=== PATIENT | male | born 1965 | race Caucasian/White ===

== ENCOUNTER 2019-09-26 06:59 | Emergency (ER) | payer OTHER ==
[~2019-09-26] VITALS: Ht 167.6 cm; Wt 90.0 kg
[2019-09-26] MEDS ORDERED: IV NORMAL SALINE 1000ML BAG 1,000 ML IV ONE (07:30)
[2019-09-26 08:08] LABS: BASO % 1 % (0-3); EOS # 0.1 x10^3/uL (0.0-0.7); EOS % 2 % (0-3); HEMATOCRIT 49.5 % (39.0-53.0); HEMOGLOBIN 17.6 g/dL (13.0-17.5); LYMPH # 2.2 x10^3/uL (1.0-4.8); LYMPH % 27 % (24-48); MEAN CORPUSCULAR HEMOGLOBIN 32 pg (25-35); MEAN CORPUSCULAR HGB CONC 36 g/dL (31-37); MEAN CORPUSCULAR VOLUME 89 fL (79-100); MONO # 0.6 x10^3/uL (0.0-1.1); MONO % 8 % (0-9); NEUT # 5.1 x10^3/uL (1.8-7.7); NEUT % 63 % (31-73); PLATELET COUNT 213 x10^3/uL (140-400); RED BLOOD COUNT 5.54 x10^6/uL (4.30-5.70); RED CELL DISTRIBUTION WIDTH 14.5 % (11.5-14.5); WHITE BLOOD COUNT 8.1 x10^3/uL (4.0-11.0)
[2019-09-26 08:19] LABS: CALCIUM 8.7 mg/dL (8.5-10.1); CREATININE 0.9 mg/dL (0.7-1.3); GFR 87.9; POTASSIUM 4.2 mmol/L (3.5-5.1)
[2019-09-26 08:25] LABS: ALBUMIN 3.8 g/dL (3.4-5.0); ALBUMIN/GLOBULIN RATIO 1.2 (1.0-1.7); TOTAL BILIRUBIN 0.8 mg/dL (0.2-1.0)
--- NOTE | 2019-09-26 08:42 | PHYS DOC ---
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 He has been feeling dizzy and he has had a lack of appetite. He states he is not had much to eat or drink over the last couple days. He denies any fever chills or sweats. He denies any lower extremity swelling or pain. He denies palpitations or chest discomfort. He has not passed out he denies a headache or any lateralizing neurologic weakness.] Review of Systems: Review of Systems: Constitutional: Denies fever or chills. [] Eyes: Denies change in visual acuity. [] HENT: Denies nasal congestion or sore throat. [] Respiratory: Denies cough or shortness of breath. [] Cardiovascular: Denies chest pain or edema. [] GI: Denies abdominal pain, nausea, vomiting, bloody stools or diarrhea. [] : Denies dysuria. [] Musculoskeletal: Denies back pain or joint pain. [] Integument: Denies rash. [] Neurologic: Reports dizziness [] Endocrine: Denies polyuria or polydipsia. [] Lymphatic: Denies swollen glands. [] Psychiatric: Reports anxiety [] Heart Score: Risk Factors: Risk Factors: DM, Current or recent (<one month) smoker, HTN, HLP, family history of CAD, obesity. Risk Scores: Score 0 - 3: 2.5% MACE over next 6 weeks - Discharge Home Score 4 - 6: 20.3% MACE over next 6 weeks - Admit for Clinical Observation Score 7 - 10: 72.7% MACE over next 6 weeks - Early Invasive Strategies Current Medications: Current Medications Medications (Trade) Dose Ordered Sig/Ayan Start Time Stop Time Status Last Admin Dose Admin Sodium Chloride 1,000 ml @ 1,000 mls/hr 1X ONCE 09/26/19 07:30 09/26/19 08:29 DC 09/26/19 08:00 1,000 MLS/HR Allergies: Allergies: Allergies Coded Allergies Type Severity Reaction Last Updated Verified No Known Drug Allergies 09/26/19 No Physical Exam: PE: Constitutional: Well developed, well nourished, no acute distress, non-toxic appearance. [] HENT: Normocephalic, atraumatic, bilateral external ears normal, oropharynx moist, no oral exudates, nose normal. [] Eyes: PERRLA, EOMI, conjunctiva normal, no discharge. [] Neck: Normal range of motion, no tenderness, supple, no stridor. [] Cardiovascular:Heart rate regular rhythm, no murmur [] Lungs & Thorax: Bilateral breath sounds clear to auscultation [] Abdomen: Bowel sounds normal, soft, no tenderness, no masses, no pulsatile masses. [] Skin: Warm, dry, no erythema, no rash. [] Back: No tenderness, no CVA tenderness. [] Extremities: No tenderness, no cyanosis, no clubbing, ROM intact, no edema. [] Neurologic: Alert and oriented X 3, normal motor function, normal sensory function, no focal deficits noted. [] Psychologic: Affect normal, judgement normal, mood normal. [] Current Patient Data: Labs: Laboratory Tests Test 09/26/19 07:55 White Blood Count 8.1 x10^3/uL (4.0-11.0) Red Blood Count 5.54 x10^6/uL (4.30-5.70) Hemoglobin 17.6 g/dL (13.0-17.5) H Hematocrit 49.5 % (39.0-53.0) Mean Corpuscular Volume 89 fL (79-100) Mean Corpuscular Hemoglobin 32 pg (25-35) Mean Corpuscular Hemoglobin Concent 36 g/dL (31-37) Red Cell Distribution Width 14.5 % (11.5-14.5) Platelet Count 213 x10^3/uL (140-400) Neutrophils (%) (Auto) 63 % (31-73) Lymphocytes (%) (Auto) 27 % (24-48) Monocytes (%) (Auto) 8 % (0-9) Eosinophils (%) (Auto) 2 % (0-3) Basophils (%) (Auto) 1 % (0-3) Neutrophils # (Auto) 5.1 x10^3/uL (1.8-7.7) Lymphocytes # (Auto) 2.2 x10^3/uL (1.0-4.8) Monocytes # (Auto) 0.6 x10^3/uL (0.0-1.1) Eosinophils # (Auto) 0.1 x10^3/uL (0.0-0.7) Basophils # (Auto) 0.0 x10^3/uL (0.0-0.2) D-Dimer (Nancy) < 0.27 ug/mlFEU Sodium Level 123 mmol/L (136-145) L Potassium Level 4.2 mmol/L (3.5-5.1) Chloride Level 89 mmol/L (98-107) L Carbon Dioxide Level 26 mmol/L (21-32) Anion Gap 8 (6-14) Blood Urea Nitrogen 21 mg/dL (8-26) Creatinine 0.9 mg/dL (0.7-1.3) Estimated GFR (Cockcroft-Gault) 87.9 BUN/Creatinine Ratio 23 (6-20) H Glucose Level 127 mg/dL (70-99) H Calcium Level 8.7 mg/dL (8.5-10.1) Total Bilirubin 0.8 mg/dL (0.2-1.0) Aspartate Amino Transferase (AST) 49 U/L (15-37) H Alanine Aminotransferase (ALT) 48 U/L (16-63) Alkaline Phosphatase 119 U/L (46-116) H Troponin I Quantitative < 0.017 ng/mL (0.000-0.055) Total Protein 7.0 g/dL (6.4-8.2) Albumin 3.8 g/dL (3.4-5.0) Albumin/Globulin Ratio 1.2 (1.0-1.7) Thyroid Stimulating Hormone (TSH) 1.540 uIU/mL (0.358-3.74) Laboratory Tests 09/26/19 07:55 Laboratory Tests 09/26/19 07:55 Vital Signs: Vital Signs Date Time Temp Pulse Resp B/P (MAP) Pulse Ox O2 Delivery O2 Flow Rate FiO2 09/26/19 07:10 98.0 82 16 146/84 (104) 95 Room Air 98.0 EKG: EKG: EKG: Normal sinus rhythm rate of [address]-T changes [] Radiology/Procedures: Radiology/Procedures: [] Course & Med Decision Making: Course & Med Decision Making Pertinent Labs and Imaging studies reviewed. (See chart for details) [] ED course: Evaluation reveals a 54-year-old male with low sodium. After further discussion with the patient he states he is markedly increased his water intake coupled with the fact that he is not eating much in the way of food. He denies any alcohol use. He did have a liter of normal saline during his stay in the department and states he feels much better. We discussed the possibility of staying overnight in the hospital he did not want to do that stating that he will see a primary care doctor when he gets back down to [place]. I really strongly recommended to him to find one within the next several days to recheck. We talked about limiting his water intake and having a better diet. I did inform him that his blood sugar was slightly elevated and he would need to keep an eye on this this is likely going to be remedied by diet and exercise and he understands that. Holli Disclaimer: Holli Disclaimer: This electronic medical record was generated, in whole or in part, using a voice recognition dictation system. Departure Departure Impression: Primary Impression: Hyponatremia Disposition: 01 HOME, SELF-CARE Condition: STABLE Referrals: NO PCP (PCP) Patient Instructions: Dilutional Hyponatremia, Hyponatremia, Sodium and Fluid Restriction Additional Instructions: It is extremely important that you follow-up with a primary care physician in the next few days. If your symptoms return or intensify you need to return to the emergency department. JIMENA LAWS DO September 26, 2019 08:42
--- NOTE | 2019-09-26 08:58 | EKG ---
[facility] [address] [place] [address] Test Date: 2019-09-26 Test Time: 07:45:47 Pat Name: DUNCAN PISANO Department: Room: Gender: M [employer] Intern: : 1965 Requested By: JIMENA LAWS Order Number: [id number] Reading MD: [place] Sky MD Measurements Intervals [place] Rate: 77 P: 42 [place]: 162 QRS: 44 QRSD: 92 T: 52 QT: 364 QTc: 414 Interpretive Statements SINUS RHYTHM Electronically Signed On 09-26-2019 11:23:46 CDT by [place] Sky MD
[2019-09-26 09:09] VITALS: BP 128/70
== END 2019-09-26 09:12 | disposition home or self-care (01) ==
LOC: EDBD 06:59 → ER 06:59
DX: E87.1 Hypo-osmolality and hyponatremia (principal); R42 Dizziness and giddiness; I10 Essential (primary) hypertension; E78.00 Pure hypercholesterolemia, unspecified; F17.200 Nicotine dependence, unspecified, uncomplicated
CPT/HCPCS: 36415; 80053; 84443; 84484; 85025; 85379; 93005; 96360; 99284; J7030